=== PATIENT | male | born 1940 | race Caucasian/White ===

== ENCOUNTER 2022-04-25 12:08 | Outpatient (REF) | payer MEDICARE, SELFPAY ==
[2022-04-25 12:24] LABS: MANUAL DIFF FLAG NO
[2022-04-25 12:58] LABS: Basophils Percent Auto 0.2 % (0-2); Eosinophils Absolute Auto 0.2 X10*3/uL (0.0-0.4); Eosinophils Percent Auto 2.5 % (0-4); Hematocrit 46.1 % (42.0-52.0); Hemoglobin 15.5 g/dl (14.0-18.0); Imm Gran Abs Auto 0.04 X10*3/uL (0.00-0.03); Imm Gran Pct Auto 0.4 % (0.0-0.4); Lymphocytes Absolute Auto 1.3 X10*3/uL (1.2-4.9); Lymphocytes Percent Auto 13.8 % (20-40); Mean Corpuscular HGB Conc 33.6 g/dl (31.0-36.0); Mean Corpuscular Hemoglobin 31.5 pg (27.0-33.0); Mean Corpuscular Volume 93.7 fL (80.0-98.0); Mean Platelet Volume 9.4 fL (9.4-12.4); Monocytes Absolute Auto 0.8 X10*3/uL (0.1-1.2); Neutrophils Absolute Auto 6.8 x10*3/uL (2.0-8.3); Neutrophils Percent Auto 74.1 % (45-73); Platelet Count 253 X10*3/uL (160-400); Red Blood Count 4.92 X10*6/uL (4.60-5.80); Red Cell Distribution Width 11.8 % (11.0-16.0); White Blood Count 9.2 X10*3/uL (4.8-10.8)
[2022-04-25 13:37] LABS: Anion Gap 17 (12-20); Blood Urea Nitrogen 14 mg/dL (9-16); Carbon Dioxide 23 mmol/L (22-29); Chloride 103 mmol/L (96-108); Estimated Glomerular Filt Rate > 60; Glucose Random 80 mg/dL (60-115); Potassium 3.9 mmol/L (3.3-5.1); Sodium 139 mmol/L (135-145)
[2022-04-25 13:46] LABS: Thyroid Stimulating Hormone 1.21 uIU/mL (0.32-4.0)
[2022-04-25 14:16] LABS: Folate 17.5 ng/mL (> or = 4.0); Vitamin B12 820 pg/mL (200-900)
== END 2022-04-25 12:09 | disposition home or self-care (01) ==
LOC: HO.LAB 12:08
PROVIDERS: PCP Internal Medicine; Visit Provider Psychiatry & Neurology Neurology
DX: G93.40 Encephalopathy, unspecified (principal)
CPT/HCPCS: 36415; 80048; 82607; 82746; 84443; 85025

== ENCOUNTER 2022-04-29 14:41 | Outpatient (REF) | payer MEDICARE, SELFPAY ==
--- NOTE | ~2022-04-29 | CT_ITS ---
EXAMINATION: CT HEAD WITHOUT CONTRAST CLINICAL INFORMATION: 81-year-old with cerebrovascular disease, unspecified. COMPARISON: 02/03/2020 CT brain. TECHNIQUE: Contiguous axial imaging was performed from the skull base to vertex without intravenous administration of contrast. This CT examination was performed using dose optimization techniques as appropriate, variously including the following: *Automated exposure control *Adjustment of mA and/or kV according to patient size (this includes techniques or standardized protocols for targeted exams where dose is matched to indication/reason for exam; i.e. extremities or head) *Use of iterative reconstruction technique DLP: 665 mGy-cm FINDINGS: BRAIN VOLUME: [id number] generalized diffuse supratentorial brain parenchymal volume loss and mild infratentorial brain parenchymal volume loss is similar to the previous exam, with somewhat asymmetric prominence of the left parieto-occipital fissure compared to the right and asymmetric prominence of the sulcal spaces overlying the left posterior frontal region unchanged in appearance. STRUCTURAL: No malformations. BRAIN AND MENINGES: Scattered faint patchy zones of hypodensity seen in the subcortical and deeper white matter of both cerebral hemispheres, with a relatively frontal predominance and also involving the left parietal region similar to the prior study consistent with chronic ischemic microangiopathy. No acute territorial infarct, hemorrhage, extra-axial fluid collection, space-occupying process or mass effect. The michael-white matter differentiation appears intact. Ganglionic structures and brainstem appear grossly intact. VENTRICLES AND SUBARACHNOID SPACES: Ventricular system and subarachnoid spaces are stable without hydrocephalus. ORBITAL STRUCTURES: Bilateral lens extractions are noted. Otherwise the visualized orbital soft tissue structures appear grossly within normal limits within the limitations of the study. There are mural calcifications of both carotid siphons similar to previous exam. OSSEOUS STRUCTURES, SINUSES/MASTOIDS, EXTRACRANIAL SOFT TISSUES: Unremarkable. CT/CT head/brain wo IV con IMPRESSION: Chronic ischemic microangiopathy in the white matter of both cerebral hemispheres similar in appearance to the previous study with no evidence for acute territorial infarct, hemorrhage, space-occupying process, mass effect or hydrocephalus.
== END 2022-04-29 14:42 | disposition home or self-care (01) ==
LOC: HO.CT 14:41
PROVIDERS: PCP Internal Medicine; Visit Provider Psychiatry & Neurology Neurology
DX: I67.9 Cerebrovascular disease, unspecified (principal); G93.40 Encephalopathy, unspecified
CPT/HCPCS: 70450